=== PATIENT | female | born 1955 | race Caucasian/White ===

== ENCOUNTER → 2016-11-24 | Outpatient (CLI) | payer OTHER ==
[2016-08-04 09:51] VITALS: BP 156/65
[~2016-11-24] MED LIST: ASPI81TA2 PO; BUPR150T11 PO; CELE200C PO; CHOL100013 PO; GLUC1TAB33 PO; HYDR-2672 PO; HYDR12.58 PO; LEVO200T5 PO; LEVO25TA4 PO; LEVO500T38 PO; LISI-334 PO; METF500T4 PO; MULT-658 PO; NITR100C63 PO; OMEG500C3 PO; OXYC5CAP3 PO; PROAIR HFA8.5 GM IH; SIMV20TA3 PO; TRAM50TA PO; WARF5TAB PO; WARF5TAB7 PO
--- NOTE | 2016-11-24 11:19 | KCIC ---
MR LUMBAR SPINE HISTORY:Reason For StudyReason: SPINAL STENOSIS / Spl. Instructions: Previous Lsp xrays / History: Chronic LBP 3-4 yrs. COMPARISON: None Technique: Sagittal T2, sagittal STIR, and sagittal T1-weighted images were obtained. Additional axial T1 and T2 weighted imaging was also performed. FINDINGS: There is straightening of the lumbar lordosis. There is no compression fracture or deformity. A hemangioma is noted in the L2 vertebral body. There is advanced disc height loss at L1-2 with sclerotic and edematous endplate changes. The conus terminates normally at the level of T12. Visualized intra-abdominal contents are within normal limits. At L5-S1 there is moderate disc height loss and a broad-based disc protrusion. This causes mild lateral recess stenosis on the left. At L4-L5 there is moderate disc height loss with some Modic type 2 degenerative endplate change on the left. This results in mild left foraminal narrowing. At L3-L4 there is mild disc height loss but no spinal stenosis. At L2-3 there is moderate disc height loss and a broad-based disc protrusion. This causes no significant central spinal or neural foraminal stenosis. At L1-L2 there is advanced disc height loss with degenerative endplate edema. Impression: - Multilevel degenerative disc disease greatest at L1-L2 with there is advanced disc height loss and reactive endplate edema. This is seen to a lesser degree at L4-L5. - Other less severe degenerative changes per level as above. Electronically signed by: Roshan Pablo (Nov 24, 2016 11:17:33)
== END | disposition home or self-care (01) ==
LOC: KCIC MRI 09:04
PROVIDERS: ATTEND Orthopaedic Surgery
DX: M51.36 Other intervertebral disc degeneration, lumbar region (principal)
CPT/HCPCS: 72148

== ENCOUNTER → 2016-12-31 | Outpatient (CLI) | payer OTHER ==
[2016-08-04 09:51] VITALS: BP 156/65
[~2016-12-31] MED LIST changes: +OXYC-244 PO
--- NOTE | 2017-01-01 22:14 | PAIN ---
DATE OF SERVICE: 12/31/2016 INITIAL CONSULTATION CHIEF COMPLAINT: Low back and left lower extremity pain. HISTORY OF PRESENT ILLNESS: This is a 61-year-old female with a history of pain in the low back, left lower extremity for about a year, increasing, has had it longer than that, but much more significant over the past year or so. The patient reports it as constant, sharp, stabbing throbbing pain, shooting pain in the left leg mostly in the anterior aspect of the thigh to the medial knee as well as in the posterior low back gluteus and lateral thigh. Some pain across the back into the right side, but mostly on the left lower extremity. The patient reports it wakes up her sleep at least 3 or 4 times in night and affects her bowel or bladder control with some increased urgency but no loss of continence. The patient reports it definitely decreases her ability to walk for longer periods. She is using a cane in her right hand to ambulate and has it with her today. The patient reports that she has done physical therapy and completed that about 1 month ago. She is also swimming twice a week at the local [employer] pool. The patient reports that while this does help the pain to a moderate extent, it does not last after she gets out of the pool. The patient has been taking oxycodone in the past, which she reports does help when she took ____ recently used yesterday by about 50%. The patient had other exercises she doing on her own, stretching and strengthening as well at home which are in her mind feeling helping some, but not significantly. The patient reports disability rate from 0 to 10, 10 being the worst, is 8 with family and home responsibilities, 10 with recreation, 7-9 with social activities, 10 with occupation and sexual behavior, 6 with self-care and 8 with life support activities. The patient did have an MRI scan of lumbar spine showing multilevel degenerative disk disease changes, greatest at L1-L2 with advanced disk height loss and ____ edema and at L4-L5 with moderate disk height loss and some Modic type 2 degenerative endplate changes on the left, resulting in mild left foraminal narrowing. L5-S1 shows a moderate disk height loss and a broad-based disk protrusion causing mild lateral recess stenosis on the left as well. PAST MEDICAL HISTORY: Significant for diabetes type 2, hypothyroidism, hypertension, arthritis, 5 previous childbirths. PAST SURGICAL HISTORY: Include the right knee surgery and left knee surgery replacement, both in 2016; in 1978 and 1980. CURRENT MEDICATIONS: Include metformin, simvastatin, lisinopril, vitamin D, levothyroxine, oxycodone, bupropion, hydrochlorothiazide, centrum and albuterol inhaler. ALLERGIES: The patient has no known drug allergies. FAMILY HISTORY: Significant for liver disease and heart disease. SOCIAL HISTORY: The patient currently smokes 1/2 pack a day, and has for the past 40 years, does not drink alcohol, does not use any other illicit illegal drugs or other substance by her report. REVIEW OF SYSTEMS: The patient's review of systems is positive for those items mentioned in history of present illness. All systems are reviewed and otherwise negative. It is complete, full and well documented on the patient's chart. PHYSICAL EXAMINATION: VITAL SIGNS: Blood pressure 142/85. Pulse 78, respirations 18, temperature 98.0 degrees Fahrenheit, weight 215 pounds. GENERAL: The patient is awake, alert, oriented, appropriate, very pleasant in demeanor. HEENT: Head shows normocephalic, atraumatic. Extraocular movements are intact, symmetrical. Oral cavity, mucous membranes are moist and pink. Dentition is intact. NECK: Shows anterior throat is supple without palpable lymphadenopathy noted. Swallow reflex is symmetrical. Neck shows full rotational motion of the cervical spine without tenderness or difficulty including extension, flexion, right and left lateral rotation. CHEST: Normal with infection. Breath sounds are clear to auscultation bilaterally. HEART: Shows S1, S2 clear. ABDOMEN: Soft, nontender, nondistended. No palpable organomegaly is noted. No rebound or guarding demonstrated. BACK: Shows spine grossly in the midline, normal-appearing thoracic kyphotic curvature as well as lumbar lordotic curvature. Lumbar paraspinous musculature shows symmetrical with inspection and palpation shows moderate tenderness with palpation in the middle and lower distribution of the paraspinous muscles, more on the left than the right, but tender on both sides. No tenderness over the spinous processes, no tenderness over the sacrum or the sacroiliac region with palpation. The patient does show good rotational motion of the lumbar spine, both laterally greater than 10 degrees right and left as well as extension greater than 10 degrees, forward flexion 45 degrees without significant pain or limitation in motion. EXTREMITIES: The patient's lower extremities show deep tendon reflexes at 1+ in the patellar and talocalcaneal tendons were equal, motor exam is strong with 5/5 with dorsiflexion, extension, quadriceps and hamstring flexion and are intact. The patient has well-healed surgical scars on both knees. The patient's peripheral pulses are 1+ posterior tibial and dorsalis pedis pulses. No peripheral edema is noted. No clubbing, no cyanosis. Lower extremities are warm and dry to touch, equal in color and appearance. Straight leg raise noted to be positive on the left at about 45 degrees and negative on the right. Gaenslen's and Bashir's maneuvers are negative bilaterally. The patient is able to stand, stand on her toes without significant difficulty, but is slightly off balance when doing this, but is able to perform it. The patient is walking with a shuffling gait, appears to favor her left lower extremity, but using a cane in her right hand with ambulation. IMPRESSION: 1. This is a 61-year-old female with approximately 1-year history of increasing pain, low back, left lower extremity in the radicular fashion. 2. MRI scan of lumbar spine as noted. 3. Hypertension. 4. Type 2 diabetes. 5. Arthritis. 6. Cigarette smoking. PLAN: Options were discussed with the patient including conservative medical management, physical therapy, interventional techniques. She has recently finished physical therapy. She would like to proceed with interventional techniques. We discussed a lumbar epidural steroid injection, using description as well as anatomical models to describe the procedure. The patient will wait for preauthorization with her insurance provider and we will have her return to clinic in approximately 1 week. Plan on lumbar epidural injection at that time. BRIE HAYNES MD DR: HARISH/sterling JOB#: [id number] / [id number]
== END | disposition home or self-care (01) ==
LOC: PNCL 10:12
PROVIDERS: ATTEND Anesthesiology
DX: M25.60 Stiffness of unspecified joint, not elsewhere classified (principal); M54.2 Cervicalgia; M79.605 Pain in left leg
CPT/HCPCS: 99214

== ENCOUNTER → 2017-01-21 | Outpatient (CLI) | payer OTHER ==
[2016-08-04 09:51] VITALS: BP 156/65
[~2017-01-21] MED LIST changes: +IOHEXOL 180 MG/ML 10 ML VIAL. ONE; +methylPREDNISolone ACETATE 40 MG/ML VIAL. ONE; +methylPREDNISolone ACETATE 80 MG/ML VIAL. ONE
--- NOTE | 2017-01-21 23:50 | PAIN ---
DATE OF SERVICE: 01/21/2017 DIAGNOSIS: Lumbar radiculopathy with lumbar degenerative disk disease. HISTORY OF PRESENT ILLNESS: The patient is a 61-year-old female who returns for followup status post initial evaluation and preauthorization for lumbar epidural steroid injection. The patient returns today with authorization, would like to proceed, still significant pain in the low back and left lower extremity, no significant change, but still an 8-10 on a scale of 10, radiating to the low back, left leg, posterior gluteus, lateral thigh, medial thigh, anterior thigh into the lower leg in the posterior, medial and the anterior aspect as well as tight shooting, stabbing pain without new motor or sensory deficits. No pain in the right lower extremity. The patient reports no new changes or other complaints. PHYSICAL EXAMINATION: VITAL SIGNS: The patient's blood pressure is 136/69, pulse is 80, respirations are 20, temperature is 98.1 degrees Fahrenheit. Height is 5 feet 5 inches, weight is 215 pounds. GENERAL: The patient is awake, alert, oriented, and appropriate, has very pleasant demeanor. HEENT: Head shows normocephalic, atraumatic. Extraocular movements are intact, symmetrical. The patient is wearing eye glasses. Oral cavity, mucous membranes are moist and pink. Dentition is intact. NECK: Shows anterior throat supple without palpable lymphadenopathy noted. Swallow reflex is symmetrical. CHEST: Shows normal on inspection. Breath sounds are clear to auscultation bilaterally. HEART: Shows S1 and S2 clear. No murmurs auscultated. ABDOMEN: Obese, soft, nontender, nondistended. No palpable organomegaly is noted. No rebound or guarding demonstrated. BACK: Shows spine grossly in the midline. Lumbar paraspinous musculature is symmetrical with inspection. No atrophy or hypertrophy, no asymmetry with palpation, shows some moderate tenderness with palpation bilaterally in the lumbar paraspinous musculature, but only diffusely and only in the lower lumbar distribution. The patient shows good rotational motion both laterally as well as extension and flexion without difficulty. EXTREMITIES: Lower extremities showed deep tendon reflexes 1+ in the patellar and tendo calcaneus tendons are equal. Motor exam is strong with 5/5 dorsiflexion, extension, quadriceps and hamstring flexion. Options were discussed with the patient. The patient's old chart was reviewed as was her current medication regimen and updated. Current review of systems updated today as well. We will proceed with a lumbar epidural steroid injection today with fluoroscopic guidance. Risks were again discussed including, but not limited to bleeding, infection, possibility of epidural hematoma, subsequent neurologic compromise, dural puncture, headaches, spinal cord and/or nerve damage, side effects of steroid medication and poor results regarding pain control. The patient understands and wished to proceed. The patient will return to clinic in approximately 2 weeks for followup, was counseled on return appointment, activity level and side effects to be aware of. DIAGNOSIS: Lumbar radiculopathy with lumbar degenerative disk disease. PROCEDURE: Lumbar epidural steroid injection in translaminar approach at the L4-L5 level using C-arm fluoroscopic guidance under sterile prep and drape using local anesthetic. Medications injected with 120 mg Depo-Medrol plus 10 mL of preservative-free normal saline and 2 mL of Isovue for contrast. CONDITION AT DISCHARGE: Stable. The patient tolerated procedure well, had no complications. BRIE HAYNES MD DR: HARISH/sterling JOB#: [id number] / [id number]
== END | disposition home or self-care (01) ==
LOC: PNCL 09:32
PROVIDERS: ATTEND Anesthesiology
DX: M51.16 Intervertebral disc disorders with radiculopathy, lumbar region (principal); E78.00 Pure hypercholesterolemia, unspecified; I10 Essential (primary) hypertension; E11.9 Type 2 diabetes mellitus without complications; M19.90 Unspecified osteoarthritis, unspecified site; E03.9 Hypothyroidism, unspecified; Z87.440 Personal history of urinary (tract) infections; Z96.651 Presence of right artificial knee joint
CPT/HCPCS: 62323; J1030; J1040

== ENCOUNTER → 2017-02-04 | Outpatient (CLI) | payer OTHER ==
[2016-08-04 09:51] VITALS: BP 156/65
[~2017-02-04] MED LIST changes: +WARF-78 PO; -WARF5TAB PO
--- NOTE | 2017-02-04 16:32 | PAIN ---
DATE OF SERVICE: 02/04/2017 PROGRESS NOTE FOR PAIN CLINIC DIAGNOSES: Lumbar radiculopathy with lumbar degenerative disk disease. HISTORY OF PRESENT ILLNESS: This is probably a 61-year-old female, who returns for followup status post lumbar epidural steroid injection x 1. The patient reports about 40% improvement after the first injection, feels like a "tooth ache" in the low back into the left leg. The patient reports it is a 10 on a scale of 10, it is worst is at its least ____ 7 today. The patient reports radiating pain, aching and tight in the low back and reports it awakens her from sleep about 3-4 times at night. She has to reposition, take pain medicines, get out of bed and walk around, otherwise no new motor or sensory deficits, no new bowel or bladder incontinence or other complaints. PHYSICAL EXAMINATION: VITAL SIGNS: The patient's blood pressure 137/63, pulse is 52, respirations are 20, temperature 97.8 degrees Fahrenheit. Height is 5 feet 5 inches, weight is 214 pounds. GENERAL: The patient is awake, alert, oriented, appropriate, very pleasant demeanor. HEENT: Head shows normocephalic, atraumatic. The patient wears eye glasses. Extraocular movements intact, symmetrical. Oral cavity: Mucous membranes moist and pink. Dentition is intact. NECK: Shows anterior throat supple without palpable lymphadenopathy noted. Neck shows full rotational motion of the cervical spine without difficulty. CHEST: Shows breath sounds clear to auscultation bilaterally. HEART: Shows S1 and S2 clear. ABDOMEN: Soft, nontender, nondistended. No palpable organomegaly. No rebound or guarding demonstrated. BACK: Shows spine grossly midline. Lumbar paraspinous musculature shows some moderate tenderness with palpation, but only diffusely without radiation. LOWER EXTREMITIES: Showed deep tendon reflexes 1+ in the patellar and tendo calcaneus tendons are equal. Motor exam is strong with 5/5 dorsiflexion, extension, quadriceps and hamstring flexion. Options were discussed with the patient and the patient's old chart was reviewed as her current medication regimen updated. Current review of systems updated today as well. We will proceed with the second lumbar epidural steroid injection today with fluoroscopic guidance. Risks were again discussed including, but not limited to bleeding, infection, possibility of epidural hematoma, subsequent neurologic compromise, dural puncture, headaches, spinal cord and/or nerve damage, side effects of steroid medication and poor results regarding pain control. The patient understands and wishes to proceed. The patient will return to the clinic in approximately 2 weeks for followup, was counseled on return appointment, activity level and side effects to be aware of. DIAGNOSES: Lumbar radiculopathy with lumbar degenerative disk disease. PROCEDURE: Lumbar epidural steroid injection in translaminar approach L4-L5 level using C-arm fluoroscopic guidance under sterile prep and drape using local anesthetic. MEDICATIONS INJECTED: Depo-Medrol 120 mg plus 10 mL of preservative-free normal saline and 2 mL of Isovue for contrast. CONDITION AT DISCHARGE: Stable. The patient tolerated the procedure well, had no complications. BRIE HAYNES MD DR: HARISH/sterling JOB#: [id number] / [id number]
== END | disposition home or self-care (01) ==
LOC: PNCL 09:03
PROVIDERS: ATTEND Anesthesiology
DX: M51.16 Intervertebral disc disorders with radiculopathy, lumbar region (principal); E78.00 Pure hypercholesterolemia, unspecified; I10 Essential (primary) hypertension; M19.90 Unspecified osteoarthritis, unspecified site; E03.9 Hypothyroidism, unspecified; E11.9 Type 2 diabetes mellitus without complications; Z87.440 Personal history of urinary (tract) infections
CPT/HCPCS: 62323; J1030; J1040

== ENCOUNTER 2017-07-17 08:35 | Emergency (ER) | payer OTHER ==
[~2017-07-17] VITALS: Ht 162.6 cm; Wt 97.5 kg
[~2017-07-17 08:35] MED LIST changes: +ASPI-630 PO; -ASPI81TA2 PO; -HYDR-2672 PO; +HYDR-2766 PO; -IOHEXOL 180 MG/ML 10 ML VIAL. ONE; -LEVO500T38 PO; +LEVO500T59 PO; -OXYC-244 PO; +OXYC-327 PO; +OXYC5CAP PO; -OXYC5CAP3 PO; -methylPREDNISolone ACETATE 40 MG/ML VIAL. ONE; -methylPREDNISolone ACETATE 80 MG/ML VIAL. ONE
[2017-07-17] MEDS ORDERED: methylPREDNISolone SOD SUCC PF 125 MG/2 ML VIAL. IM ONE (09:00)
[2017-07-17] MEDS ORDERED: IPRATRPIUM/ALBUTEROL 0.5/2.5MG 3 ML NEBU. NEB ONE (09:00)
[2017-07-17] MEDS ORDERED: methylPREDNISolone SOD SUCC PF 125 MG/2 ML VIAL. IV ONE (09:30)
--- NOTE | 2017-07-17 09:32 | RAD ---
2 view CXR: Clinical indications: Shortness of breath and dyspnea. Comparison: May 25, 2016. Findings: Mild peribronchial thickening is seen bilaterally. There is left lung base linear atelectasis. No lung consolidation or pleural effusion or pneumothorax is seen. The heart size, pulmonary vasculature, mediastinum and both chinmay are unremarkable. The osseous structures appear intact. Impression: Mild bronchitis. No consolidative pneumonia. Mild left lung base linear atelectasis..
--- NOTE | 2017-07-17 09:43 | PHYS DOC ---
Past Medical History Past Medical History: COPD Adult General Chief Complaint Chief Complaint: COUGH HPI HPI Patient is a 62 year old female presents to the emergency department stating that she developed shortness of air difficulty breathing last night. She states this morning anytime she gets up and tries to ambulate she has increased shortness of air. Patient does state she has a history of COPD and continues to smoke. Patient does have a nonproductive cough. She states that last night she had a fever however did not take her temperature. Patient states she's used her inhalers at home with no relief. Review of Systems Review of Systems Constitutional: Denies fever or chills [] Eyes: Denies change in visual acuity, redness, or eye pain [] HENT: Denies nasal congestion or sore throat [] Respiratory: cough and shortness of breath [] Cardiovascular: No additional information not addressed in HPI [] GI: Denies abdominal pain, nausea, vomiting, bloody stools or diarrhea [] : Denies dysuria or hematuria [] Musculoskeletal: Denies back pain or joint pain [] Integument: Denies rash or skin lesions [] Neurologic: Denies headache, focal weakness or sensory changes [] Endocrine: Denies polyuria or polydipsia [] Current Medications Current Medications Current Medications Medications (Trade) Dose Ordered Sig/Jackie Start Time Stop Time Status Last Admin Dose Admin Albuterol Sulfate (Ventolin Neb Soln) 2.5 mg 1X ONCE 07/17/17 10:45 07/17/17 10:46 DC 07/17/17 10:45 2.5 MG Albuterol/ Ipratropium (Duoneb) 3 ml 1X ONCE 07/17/17 09:00 07/17/17 09:03 DC 07/17/17 09:16 3 ML Methylprednisolone Sodium Succinate (SOLU-Medrol 125MG VIAL) 125 mg 1X ONCE 07/17/17 09:30 07/17/17 09:31 DC 07/17/17 10:11 125 MG Allergies Allergies Allergies Coded Allergies Type Severity Reaction Last Updated Verified No Known Drug Allergies 08/03/16 No Physical Exam Physical Exam Constitutional: Well developed, well nourished, no acute distress, non-toxic appearance. [] HENT: Normocephalic, atraumatic, bilateral external ears normal, oropharynx moist, no oral exudates, nose normal. [] Eyes: PERRLA, EOMI, conjunctiva normal, no discharge. [] Neck: Normal range of motion, no tenderness, supple, no stridor. [] Cardiovascular:Heart rate regular rhythm, no murmur [] Lungs & Thorax: Bilateral breath sounds coarse with occasional wheezes noted in the posterior lobes. Patient was noted to have a nonproductive cough. Skin: Warm, dry, no erythema, no rash. [] Extremities: No tenderness, no cyanosis, no clubbing, ROM intact, no edema. [] Neurologic: Alert and oriented X 3, normal motor function, normal sensory function, no focal deficits noted. [] Psychologic: Affect normal, judgement normal, mood normal. [] Current Patient Data Vital Signs Vital Signs Date Time Temp Pulse Resp B/P (MAP) Pulse Ox O2 Delivery O2 Flow Rate FiO2 07/17/17 10:49 96 Room Air 07/17/17 10:10 76 22 160/70 (100) 07/17/17 09:10 98.1 98.1 Lab Values Laboratory Tests Test 07/17/17 10:05 White Blood Count 9.3 x10^3/uL (4.0-11.0) Red Blood Count 3.87 x10^6/uL (3.50-5.40) Hemoglobin 9.3 g/dL (12.0-15.5) L Hematocrit 29.1 % (36.0-47.0) L Mean Corpuscular Volume 75 fL (79-100) L Mean Corpuscular Hemoglobin 24 pg (25-35) L Mean Corpuscular Hemoglobin Concent 32 g/dL (31-37) Red Cell Distribution Width 17.1 % (11.5-14.5) H Platelet Count 314 x10^3/uL (140-400) Neutrophils (%) (Auto) 93 % (31-73) H Lymphocytes (%) (Auto) 5 % (24-48) L Monocytes (%) (Auto) 2 % (0-9) Eosinophils (%) (Auto) 0 % (0-3) Basophils (%) (Auto) 0 % (0-3) Neutrophils # (Auto) 8.6 x10^3uL (1.8-7.7) H Lymphocytes # (Auto) 0.5 x10^3/uL (1.0-4.8) L Monocytes # (Auto) 0.2 x10^3/uL (0.0-1.1) Eosinophils # (Auto) 0.0 x10^3/uL (0.0-0.7) Basophils # (Auto) 0.0 x10^3/uL (0.0-0.2) Platelet Estimate Pending Sodium Level 144 mmol/L (136-145) Potassium Level 3.3 mmol/L (3.5-5.1) L Chloride Level 107 mmol/L (98-107) Carbon Dioxide Level 26 mmol/L (21-32) Anion Gap 11 (6-14) Blood Urea Nitrogen 12 mg/dL (7-20) Creatinine 0.9 mg/dL (0.6-1.0) Estimated GFR (Cockcroft-Gault) 63.4 BUN/Creatinine Ratio 13 (6-20) Glucose Level 114 mg/dL (70-99) H Calcium Level 8.7 mg/dL (8.5-10.1) Total Bilirubin 0.4 mg/dL (0.2-1.0) Aspartate Amino Transferase (AST) 20 U/L (15-37) Alanine Aminotransferase (ALT) 25 U/L (14-59) Alkaline Phosphatase 84 U/L (46-116) Total Protein 8.0 g/dL (6.4-8.2) Albumin 3.7 g/dL (3.4-5.0) Albumin/Globulin Ratio 0.9 (1.0-1.7) L Laboratory Tests 07/17/17 10:05 Laboratory Tests 07/17/17 10:05 EKG EKG [] Radiology/Procedures Radiology/Procedures [] Course & Med Decision Making Course & Med Decision Making Pertinent Labs and Imaging studies reviewed. (See chart for details) Patient was provided with respiratory treatment here in the emergency department. Patient's breath sounds unchanged after treatment. 1042 patient was reevaluated with less dyspnea noted. Patient was able to talk in full sentences. Patient states she feels that she is breathing much better. She still has wheezing noted throughout the right upper lobe. Patient will be provided with a respiratory treatment as well as a road test to see how she does with oxygenating and if she develops any dyspnea with exertion. Patient also states she has a history of anemia and has not been taking her iron recently. I contribute the 9.3 hemoglobin to the noncompliance of medication. 1113 patient had a red test in which she maintain her oxygenation to 92-94%. Patient will be discharged home with recommendations to use her inhalers. She' ll be provided with a prescription for prednisone. Patient was provided with signs and symptoms to return back to the emergency department. Recommended the patient follow-up with her primary care physician tomorrow. Signs and symptoms to return back to emergency department and been provided. All questions and concerns been answered at patient's bedside. Patient agrees with discharge instructions, treatment regimens and follow-up recommendations. [] Dragon Disclaimer Dragon Disclaimer This electronic medical record was generated, in whole or in part, using a voice recognition dictation system. Departure Departure Impression: Primary Impression: Bronchitis Disposition: HOME, SELF-CARE Condition: STABLE Referrals: LIZBETH SINGH MD (PCP) Patient Instructions: Bronchitis, [id number], Smoking Cessation Additional Instructions: Activity as tolerated. Stop smoking Continue your home medications as prescribed. Make sure that you take your iron supplement as your hemoglobin was slightly low. Medications as prescribed. Follow-up to primary care physician tomorrow. Return back to emergency prior signs symptoms of become worse. Scripts Amoxicillin/Potassium Clav (AUGMENTIN [id number] TABLET) 1 Each Tablet 1 TAB PO BID, #20 TAB Prov: YESICA LOPEZ APRN 07/17/17 Prednisone (PREDNISONE) 20 Mg Tablet 40 MG PO DAILY for 7 Days, #14 TAB Prov: YESICA LOPEZ APRN 07/17/17 YESICA LOPEZ APRN Jul 17, 2017 09:43
[2017-07-17 10:25] LABS: BASO % 0 % (0-3); EOS % 0 % (0-3); HEMATOCRIT 29.1 % (36.0-47.0); HEMOGLOBIN 9.3 g/dL (12.0-15.5); LYMPH # 0.5 x10^3/uL (1.0-4.8); LYMPH % 5 % (24-48); MEAN CORPUSCULAR HEMOGLOBIN 24 pg (25-35); MEAN CORPUSCULAR HGB CONC 32 g/dL (31-37); MEAN CORPUSCULAR VOLUME 75 fL (79-100); MONO % 2 % (0-9); NEUT % 93 % (31-73); PLATELET COUNT 314 x10^3/uL (140-400); RED BLOOD COUNT 3.87 x10^6/uL (3.50-5.40); RED CELL DISTRIBUTION WIDTH 17.1 % (11.5-14.5); WHITE BLOOD COUNT 9.3 x10^3/uL (4.0-11.0)
[2017-07-17 10:33] LABS: CALCIUM 8.7 mg/dL (8.5-10.1); CREATININE 0.9 mg/dL (0.6-1.0); GFR 63.4; POTASSIUM 3.3 mmol/L (3.5-5.1)
[2017-07-17 10:39] LABS: ALBUMIN 3.7 g/dL (3.4-5.0); ALBUMIN/GLOBULIN RATIO 0.9 (1.0-1.7); TOTAL BILIRUBIN 0.4 mg/dL (0.2-1.0)
[2017-07-17] MEDS ORDERED: ALBUTEROL SULFATE 2.5 MG/3 ML NEBU. NEB ONE (10:45)
[2017-07-17 11:10] VITALS: BP 163/71
[2017-07-17] MEDS ORDERED: AMOX1TAB61 PO (11:16)
[2017-07-17] MEDS ORDERED: PRED20TA PO (11:16)
[2017-07-17 15:11] LABS: ANISOCYTOSIS SLIGHT; HYPOCHROMIA SLIGHT; MICROCYTOSIS SLIGHT; OVALOCYTES FEW; PLT ESTIMATE ADEQUATE (ADEQUATE)
--- NOTE | 2017-07-18 16:19 | VNOTE ---
CALL BACK NOTE CALL BACK Microbiology 07/17/17 Blood Culture - Final, Complete Patient's blood culture was positive for gram-negative rods. The sensitivity came with the report however the patient was placed on Augmentin at discharge. No further treatment is necessary at this time. This was also conveyed to Dr Jc who agrees with treatment plan. YESICA LOPEZ APRN Jul 18, 2017 16:19
== END 2017-07-17 11:30 | disposition home or self-care (01) ==
LOC: ER 08:35
DX: J40 Bronchitis, not specified as acute or chronic (principal); J44.9 Chronic obstructive pulmonary disease, unspecified; R50.9 Fever, unspecified
CPT/HCPCS: 36415; 71020; 80053; 85007; 85025; 87040; 87205; 94640; 96374; 99285; J2930; J7613; J7620